=== PATIENT | male | born 1975 | race Caucasian/White ===

== ENCOUNTER 2017-02-15 09:03 | Emergency (ER) | payer MEDICAID, SELFPAY | END 2017-02-15 12:23 | disposition home or self-care (01) | PROVIDERS: Emergency Provider Emergency Medicine; Family Provider Internal Medicine Adolescent Medicine; Visit Provider Emergency Medicine | DX: R10.9 Unspecified abdominal pain (principal); E11.9 Type 2 diabetes mellitus without complications; Z86.73 Personal history of transient ischemic attack (TIA), and cerebral infarction without residual deficits; Z79.4 Long term (current) use of insulin; Z79.899 Other long term (current) drug therapy | CPT/HCPCS: 74177; 80053; 82150; 83690; 85025; 96374; 99284; J2405; Q9967 ==

== ENCOUNTER 2017-06-01 17:16 | Emergency (ER) | payer MEDICAID, SELFPAY ==
[2017-06-01 17:38] VITALS: BP 121/91; PULSE 99; RESP 18; TEMP 37.4; O2SAT 96; BMI 35.9
--- NOTE | 2017-06-01 17:45 | PC.NURSE ---
ACCUCHECK [id number]
--- NOTE | 2017-06-01 17:49 | HMH.EDUTC ---
[facility] [place] Disposition Clinical Impression: Hyperglycemia Disposition: Home, Self-Care Condition on Discharge: Good Instructions: DI for Hyperglycemia -- Adult Additional Instructions: F/U with endocrinology. Call tomorrow for appt. They will likely adjust insulin. Drink plenty of fluids tonight and eat dinner with protein and complex carbs. Do not continue to fast. Referrals: Dharmesh Felder MD [Primary Care Provider] - Forms: Work/School Release Time of Disposition: 17:53 Medical Decision Making - Medical Records Medical records reviewed: Yes: I reviewed the patient's medical records. - [place] Inquiry Pt receiving controlled substance: No Vital Signs: 06/01/17 17:38 Temperature 99.3 F Temperature Source Temporal Artery Scan Pulse Rate [Right Brachial] 99 H Respiratory Rate 18 Blood Pressure [Right Arm] 121/91 Blood Pressure Mean [Right Arm] 101 Blood Pressure Source [Right Arm] Automatic Cuff Blood Pressure Position [Right Arm] Sitting 02 Sat by Pulse Oximetry 96 Oxygen Delivery Method Room Air - Lab Data Lab results reviewed: Yes: I reviewed the patient's lab results. [facility] [place] HPI - General Stated complaint: blood sugar high Time Seen by Provider: 06/01/17 17:30 Source of Information: Patient, Spouse Limitations: No Limitations Description of Symptoms (Recalled from Triage Doc. by RN): C/O ELEVATED BLOOD SUGAR AND DIABETIC NERVE PAIN. C/O CONFUSION EARLIER TODAY THAT SEEMS TO HAVE RESOLVED HEENT Symptoms (Recalled from RN notes): No Resp Symptoms (Recalled from RN notes): No Skin Symptoms (Recalled from RN notes): No MS Symptoms (Recalled from RN notes): Yes Functional Status (Recalled from RN notes): N/A - History of Present Illness Provider Complaint: Patient presents with hyperglycemia. Has history IDDM. Has had trouble regulating blood sugars. 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 Sugar this am was 417 after eating ham and eggs. Hasn't eaten anything since. Feels a little lightheaded, nauseous, shaky. His feet are burning and on fire. His urine is dark in color and it coker when he urinates. - Related Data Home Medications Medication Instructions Recorded Confirmed ergocalciferol (vitamin D2) 50,000 50,000 units PO NEEDED PRN 28 05/06/17 unit capsule Days #8 insulin human U-100 NPH-regulr 20 units SUB-Q BID 30 Days #10 05/06/17 70-30 mix 100 unit/mL subcutaneous susp magnesium oxide 400 mg tablet 400 mg PO BID 30 Days #60 05/06/17 metformin 500 mg tablet 500 mg pe PO BID 90 Days #180 05/06/17 06/01/17 Carvedilol [Carvedilol 3.125mg Tab] 3.125 mg PO BID 06/01/17 06/01/17 Cyclobenzaprine HCl [Flexeril 10mg 10 mg PO BID PRN 06/01/17 06/01/17 tablet] Fish Oil/Dha/Epa [Fish Oil 1,200 1 each PO DAILY 06/01/17 06/01/17 mg Fish Oil] Insulin Degludec [Tresiba 56 units SQ DAILY 06/01/17 06/01/17 Flextouch U-200] Lisinopril [Lisinopril 2.5mg Tab] 2.5 mg PO DAILY 06/01/17 06/01/17 Meloxicam 15 mg PO DAILY 06/01/17 06/01/17 Allergies Allergy/AdvReac Type Severity Reaction Status Date / Time coconut Allergy Severe S-SWELLS-OR Unverified 05/06/17 10:19 [From COCONUT (FOOD/DRUG)] AL/THROAT From COCONUT (FOOD/DRUG) Allergy Severe S-SWELLS-OR Uncoded 05/06/17 10:19 AL/THROAT - Worker's Comp Is this a Worker's Comp case?: No [facility]H History Medical History: Reports:: Anxiety, Depression, Diabetes Mellitus Type 2 Other Medical History: Reports: Other Comment: ADRIENNE Comment: Gallbladder - Social History Smoking Status: Never smoker Alcohol Intake: never Substance Use Type: denies use Occupational Status: unemployed - Psychiatric History Expresses thoughts of harming self/others: None Suicide Plan Description: No Plan Pschychiatric History:: Reports:: Anxiety, Depression Family Hx:: Stroke, Hypertension, Diabetes Comment: COPD ROS Obtained: Yes All systems reviewed & no additional complaints - Co
--- NOTE | 2017-06-01 17:52 | ED_ITS ---
[facility] [place]: Hyperglycemia Disposition: Home, Self-Care Condition on Discharge: Good Instructions: DI for Hyperglycemia -- Adult Additional Instructions: F/U with endocrinology. Call tomorrow for appt. They will likely adjust insulin. Drink plenty of fluids tonight and eat dinner with protein and complex carbs. Do not continue to fast. Referrals: Dharmesh Felder MD [Primary Care Provider] - Forms: Work/School Release Time of Disposition: 17:53 Medical Decision Making - Medical Records Medical records reviewed: Yes: I reviewed the patient's medical records. - [place] Inquiry Pt receiving controlled substance: No Vital Signs: 06/01/17 17:38 Temperature 99.3 F Temperature Source Temporal Artery Scan Pulse Rate [Right Brachial] 99 H Respiratory Rate 18 Blood Pressure [Right Arm] 121/91 Blood Pressure Mean [Right Arm] 101 Blood Pressure Source [Right Arm] Automatic Cuff Blood Pressure Position [Right Arm] Sitting 02 Sat by Pulse Oximetry 96 Oxygen Delivery Method Room Air - Lab Data Lab results reviewed: Yes: I reviewed the patient's lab results. [facility] [place] - General Stated complaint: blood sugar high Time Seen by Provider: 06/01/17 17:30 Source of Information: Patient, Spouse Limitations: No Limitations Description of Symptoms (Recalled from Triage Doc. by RN): C/O ELEVATED BLOOD SUGAR AND DIABETIC NERVE PAIN. C/O CONFUSION EARLIER TODAY THAT SEEMS TO HAVE RESOLVED HEENT Symptoms (Recalled from RN notes): No Resp Symptoms (Recalled from RN notes): No Skin Symptoms (Recalled from RN notes): No MS Symptoms (Recalled from RN notes): Yes Functional Status (Recalled from RN notes): N/A - History of Present Illness Provider Complaint: Patient presents with hyperglycemia. Has history IDDM. Has had trouble regulating blood sugars. 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 Sugar this am was 417 after eating ham and eggs. Hasn't eaten anything since. Feels a little lightheaded, nauseous, shaky. His feet are burning and on fire. His urine is dark in color and it coker when he urinates. - Related Data Home Medications Medication Instructions Recorded Confirmed ergocalciferol (vitamin D2) 50,000 50,000 units PO NEEDED PRN 28 05/06/17 unit capsule Days #8 insulin human U-100 NPH-regulr 20 units SUB-Q BID 30 Days #10 05/06/17 70-30 mix 100 unit/mL subcutaneous susp magnesium oxide 400 mg tablet 400 mg PO BID 30 Days #60 05/06/17 metformin 500 mg tablet 500 mg pe PO BID 90 Days #180 05/06/17 06/01/17 Carvedilol [Carvedilol 3.125mg Tab] 3.125 mg PO BID 06/01/17 06/01/17 Cyclobenzaprine HCl [Flexeril 10mg 10 mg PO BID PRN 06/01/17 06/01/17 tablet] Fish Oil/Dha/Epa [Fish Oil 1,200 1 each PO DAILY 06/01/17 06/01/17 mg Fish Oil] Insulin Degludec [Tresiba 56 units SQ DAILY 06/01/17 06/01/17 Flextouch U-200] Lisinopril [Lisinopril 2.5mg Tab] 2.5 mg PO DAILY 06/01/17 06/01/17 Meloxicam 15 mg PO DAILY 06/01/17 06/01/17 Allergies Allergy/AdvReac Type Severity Reaction Status Date / Time coconut Allergy Severe S-SWELLS-OR Unverified 05/06/17 10:19 [From COCONUT (FOOD/DRUG)] AL/THROAT From COCONUT (FOOD/DRUG) Allergy Severe S-SWELLS-OR Uncoded 05/06/17 10:19 AL/THROAT
[2017-06-01 17:58] VITALS: BP 121/91; PULSE 99; RESP 18; TEMP 37.4; O2SAT 96
[2017-06-02 07:29] LABS: POC Glucose,Bedside 362 mg/dL (70-110)
== END 2017-06-01 17:59 | disposition home or self-care (01) ==
PROVIDERS: Emergency Provider Physician Assistant; Family Provider Internal Medicine Adolescent Medicine; PCP Internal Medicine Adolescent Medicine
DX: E11.65 Type 2 diabetes mellitus with hyperglycemia (principal); Z79.4 Long term (current) use of insulin; I10 Essential (primary) hypertension
CPT/HCPCS: 82962; 99201

== ENCOUNTER → 2017-07-30 09:31 | Outpatient (CLI) | payer MEDICAID, SELFPAY ==
--- NOTE | 2017-07-30 09:36 | MR_ITS ---
MR cervical spine wo con, MR 3-d myelogram/MRCP HISTORY: Lt sided neck pain. Bilateral arm pain but LT arm is worse with pain, numbness, and tingling. Headache. ITS.REASON: C6 RADICULOPATHY, CERVICAL NEURALGIA ORDERING PHYSICIAN: Dharmesh Felder MD PATIENT AGE: 42 years Comparison: CT 07-19-17, MRI 12-07-12 TECHNIQUE: Standard multiplanar multiecho sequences are performed without contrast. 3-D MIP and myelographic images are also rendered and reviewed FINDINGS: There is normal alignment. There is straightening of the cervical lordosis. This may be due to patient positioning or muscle spasm. The craniocervical junction has an unremarkable appearance. C2-C3: Unremarkable. C3-C4: Minimal foraminal narrowing on the right from facet hypertrophic change. C4-C5: Degenerative disc disease with right paracentral disc protrusion/disc osteophyte complex with compression upon the anterior and right aspect of the cord causing flattening of the cord at this area with right lateral recess narrowing. This had a similar appearance on 12/07/2012 MRI. C5-C6: Mild degenerative disc disease. C6-C7: There is a small left paracentral disc osteophyte complex with an associated disc protrusion/herniation in the left paracentral and foraminal region which is more prominent on today's exam than when compared to 12/17/2012. This is causing left lateral recess narrowing and foraminal narrowing with mild indentation upon the left aspect of the cord anteriorly. C7-T1: Unremarkable. IMPRESSION: 1. Degenerative disc disease C4-C5 with right paracentral disc protrusion/disc osteophyte complex with compression upon the anterior and right aspect of the cord causing flattening of the cord at this area with right lateral recess narrowing not significant changed 2. Small left paracentral disc osteophyte complex at C6-C7 with an associated disc protrusion/herniation in the left paracentral and foraminal region which is more prominent on today's exam than when compared to 12/17/2012. This is causing left lateral recess narrowing and foraminal narrowing with mild indentation upon the left aspect of the cord anteriorly.
== END ==
PROVIDERS: Family Provider Internal Medicine Adolescent Medicine; PCP Internal Medicine Adolescent Medicine; Visit Provider Internal Medicine Adolescent Medicine
DX: M54.12 Radiculopathy, cervical region (principal)
CPT/HCPCS: 72141; 76376

== ENCOUNTER → 2017-11-25 08:17 | Outpatient (CLI) | payer MEDICAID, SELFPAY | PROVIDERS: PCP Internal Medicine Adolescent Medicine; Visit Provider Internal Medicine Endocrinology, Diabetes & Metabolism | DX: R55 Syncope and collapse (principal); E11.65 Type 2 diabetes mellitus with hyperglycemia ==

== ENCOUNTER → 2017-11-26 07:49 | Outpatient (CLI) | payer MEDICAID, SELFPAY ==
--- NOTE | 2017-11-26 07:54 | MR_ITS ---
MR cervical spine wo/w con, MR 3-d myelogram/MRCP HISTORY: Cervical RADICULOPATHY, left arm and shoulder pain and numbness and tingling with headache, recent surgery ITS.REASON: CERVICAL RADICULOPATHY, LUMBAR DISC HERNIATION ORDERING PHYSICIAN: RIKI Taylor PATIENT AGE: 42 years Comparison: 07/30/2017 TECHNIQUE: Standard multiplanar multiecho sequences are performed without and with gadolinium enhancement. 3-D MIP and myelographic images are also rendered and reviewed FINDINGS: There is normal alignment. There is straightening of the cervical lordosis which could be due to patient positioning or muscle spasm. There has been interval anterior cervical disc fusion at C6-C7. C2-C3 and C3-C4 have an unremarkable appearance. C4-C5: Degenerative disc disease with small right paracentral disc protrusion/small disc osteophyte complex abutting the anterior and right aspect of the spinal cord with minimal flattening of the cord anteriorly on the right similar to the previous exam. There is right lateral recess narrowing and narrowing of the canal at this level. C5-C6: Minimal left paracentral disc protrusion causing mild foraminal narrowing and left lateral recess narrowing C6-C7: Status post anterior cervical disc fusion with degenerative disc disease. The previously noted left paracentral and foraminal disc osteophyte complex is smaller. There does remain some residual left paracentral and foraminal disc protrusion with foraminal narrowing. There is some minimal contour deformity upon the cord anteriorly on the left. There is decreased T1 and increased T2 signal along the posterior aspect of the disc space at C6-C7 with some mild enhancement of the disc on the left. C7-T1: Unremarkable IMPRESSION: 1. Status post anterior cervical disc fusion at C6-C7 with degenerative disc disease. The previously noted left paracentral and foraminal disc osteophyte complex is smaller. There does remain some residual left paracentral and foraminal disc protrusion with foraminal narrowing. There is some minimal contour deformity upon the cord anteriorly on the left. There is decreased T1 and increased T2 signal along the posterior aspect of the disc space at C6-C7 with some mild enhancement of the disc on the left. This could be related to postsurgical changes with some residual inflammation and some mild epidural fibrosis on the left. One cannot exclude the possibility of spondylodiscitis based on the images. Correlation with clinical findings and therefore needed. 2. C4-C5: Degenerative disc disease with small right paracentral disc protrusion/small disc osteophyte complex abutting the anterior and right aspect of the spinal cord with minimal flattening of the cord anteriorly on the right similar to the previous exam. There is right lateral recess narrowing and narrowing of the canal at this level. 3. C5-C6: Minimal left paracentral disc protrusion causing mild foraminal narrowing and left lateral recess narrowing
--- NOTE | 2017-11-26 07:54 | MR_ITS ---
MR lumbar spine wo con HISTORY: Low back pain with left leg pain and numbness and tingling ITS.REASON: CERVICAL RADICULOPATHY, LUMBAR DISC HERNIATION ORDERING PHYSICIAN: RIKI Taylor PATIENT AGE: 42 years Comparison: 03/27/2015 TECHNIQUE: Standard multiplanar multiecho sequences are performed without contrast. 3-D MIP and myelographic images are also rendered and reviewed FINDINGS: There is normal alignment. The spinal cord ends at the L1 level. T12-L1: Mild endplate irregularity with minimal bulging disc anteriorly. L1-L2: Mild endplate irregularity. L2-L3: Mild endplate irregularity. L3-L4: Unremarkable. L4-5: Mild right lateral and foraminal disc protrusion with mild right foraminal narrowing L5-S1: Left paracentral and foraminal disc protrusion impinging upon the left S1 nerve root with associated facet hypertrophic change with left-sided foraminal narrowing left lateral recess narrowing. Status post laminotomy on the right. The left paracentral and foraminal disc protrusion may be very slightly larger compared to the previous exam. IMPRESSION: 1. L4-5: Mild right lateral and foraminal disc protrusion with mild right foraminal narrowing 2. L5-S1: Left paracentral and foraminal disc protrusion impinging upon the left S1 nerve root with associated facet hypertrophic change with left-sided foraminal narrowing left lateral recess narrowing. Status post laminotomy on the right. The left paracentral and foraminal disc protrusion may be very slightly larger compared to the previous exam
--- NOTE | 2017-11-26 12:41 | HMH.ITSHM ---
LEXAPRO CYCLOBENZAPRINE HYDROCHLORIDE LYRICA BD INSULIN SYRINGE MAGNESIUM OXIDE CARVEDILOL LISINOPRIL METFORMIN ERGOCALCIFEROL FISH OIL TRESIBA HUMULIN NASEEM METHOCARBAMOL ATORVASTATIN JANUVIA
== END ==
PROVIDERS: Family Provider Internal Medicine Adolescent Medicine; PCP Internal Medicine Adolescent Medicine; Visit Provider Physician Assistant
DX: M51.16 Intervertebral disc disorders with radiculopathy, lumbar region (principal); M54.12 Radiculopathy, cervical region; M47.812 Spondylosis without myelopathy or radiculopathy, cervical region
CPT/HCPCS: 72148; 72156; 76376; A9576

== ENCOUNTER → 2017-12-16 08:43 | Outpatient (CLI) | payer MEDICAID, SELFPAY ==
[2017-12-16 09:13] LABS: Microscopic, Urine URINE MICROSCOPIC (MICROSCOPIC)
[2017-12-16 09:37] LABS: Appearance,Urine CLEAR (Clear); Bilirubin,Urine Negative (Negative); Blood, Urine Negative (Negative); Color,Urine YELLOW (Yellow); Glucose,Urine (UA) 3+ (Negative); Ketones,Urine Negative (Negative); Leukocyte Esterase,Urine Negative (Negative); Nitrate,Urine Negative (Negative); PH,Urine 5.5 (5.0-8.5); Protein,Urine Negative (Negative); Specific Gravity, Urine >= 1.030 (1.005-1.030); Urobilinogen,Urine 0.2 EU/dl (0.2)
[2017-12-16 09:56] LABS: Basophils % 0.3 % (0.1-2.0); Eosinophils # 0.2 K/mm3 (0.0-0.4); Eosinophils % 2.8 % (0.1-12.0); Hematocrit 39.5 % (42.0-52.0); Hemoglobin 14.4 g/dL (14.1-18.0); Lymphocytes # 2.7 K/mm3 (0.7-4.5); Lymphocytes % 48.6 K/mm3 (10-50); Mean Corpuscular HGB Conc 36.3 g/dL (31.8-35.4); Mean Corpuscular Hemoglobin 29.2 pg (27.0-31.2); Mean Corpuscular Volume 80.4 fl (80-94); Mean Platelet Volume 6.7 fl (7.4-10.4); Monocytes # 0.2 K/mm3 (0.1-1.0); Monocytes % 4.1 % (1.7-9.3); Neutrophils # 2.5 K/mm3 (1.8-7.8); Neutrophils % 44.2 % (37.0-80.0); Platelet Count 190 K/mm3 (142-424); Red Blood Count 4.91 M/mm3 (4.60-6.20); Red Cell Distribution Width 13.6 % (11.5-17.5); White Blood Count 5.6 K/mm3 (4.8-10.8)
[2017-12-16 10:03] LABS: Activated Partial Thrombo Time 27.7 seconds (23.6-34.0); INR 1.02 (0.9-1.1)
[2017-12-16 10:04] LABS: Prothrombin Time 10.5 seconds (9.4-11.8)
[2017-12-16 10:19] LABS: Bacteria,Urine Trace /lpf; Mucus,Urine 2+ /lpf
[2017-12-16 10:36] LABS: Anion Gap 16.1 mEq/L (5-15); Blood Urea Nitrogen 13 mg/dL (7-18); Calcium 8.1 mg/dL (8.5-10.1); Carbon Dioxide 24 mmol/L (21.0-32.0); Chloride 100 mmol/L (98-107); Creatinine,Serum 0.65 mg/dL (0.70-1.30); Estimated Glomerular Filt Rate 134 ml/min (>60); GFR (African American) 162 ML/MIN (>60); Potassium 4.1 mmoL/L (3.5-5.1); Sodium 136 mmol/L (136-145)
[2017-12-16 10:42] LABS: Hemoglobin A1C 8.9 % (0.0-7.0)
[2017-12-16 12:09] LABS: Glucose 260 mg/dL (74-106)
== END ==
PROVIDERS: PCP Internal Medicine Adolescent Medicine; Visit Provider Neurological Surgery
DX: M51.16 Intervertebral disc disorders with radiculopathy, lumbar region (principal)
CPT/HCPCS: 36415; 80048; 81001; 83036; 85025; 85610; 85730; 93005

== ENCOUNTER 2018-08-26 10:00 | Outpatient (RCR) | payer MEDICAID, SELFPAY | END 2018-08-26 10:15 | disposition home or self-care (01) | LOC: PT 10:00 | PROVIDERS: Visit Provider Orthopaedic Surgery | DX: M25.512 Pain in left shoulder (principal) | CPT/HCPCS: 97014; 97016; 97110; 97140; 97163; G0283 ==

== ENCOUNTER → 2019-06-01 08:31 | Outpatient (CLI) | payer BC, SELFPAY ==
[2019-06-01 09:36] LABS: Basophils % 0.3 % (0.1-2.0); Eosinophils # 0.2 K/mm3 (0.0-0.4); Hematocrit 42.6 % (42.0-52.0); Hemoglobin 14.5 g/dL (14.1-18.0); Lymphocytes # 2.6 K/mm3 (0.7-4.5); Lymphocytes % 40.9 % (10-50); Mean Corpuscular Hemoglobin 27.6 pg (27.0-31.2); Mean Corpuscular Volume 81.3 fl (80-94); Mean Platelet Volume 7.1 fl (7.4-10.4); Monocytes # 0.3 K/mm3 (0.1-1.0); Monocytes % 4.1 % (1.7-9.3); Neutrophils # 3.3 K/mm3 (1.8-7.8); Neutrophils % 51.7 % (37.0-80.0); Platelet Count 184 K/mm3 (142-424); Red Blood Count 5.24 M/mm3 (4.60-6.20); Red Cell Distribution Width 13.5 % (11.5-17.5); White Blood Count 6.4 K/mm3 (4.8-10.8)
[2019-06-01 13:00] LABS: Chloride 101 mmol/L (98-107); Potassium 4.5 mmoL/L (3.5-5.1); Sodium 137 mmol/L (136-145)
[2019-06-01 13:02] LABS: Alanine Aminotransferase 38 U/L (12-78); Aspartate Amino Transferase 27 U/L (17-59); Blood Urea Nitrogen 15 mg/dl (9-20); Estimated Glomerular Filt Rate 123 ml/min (>60); GFR (African American) 148 ML/MIN (>60)
[2019-06-01 13:03] LABS: Albumin Level 4.5 g/dl (3.5-5.0); Albumin/Globulin Ratio 1.9 (1.1-1.8); Alkaline Phosphatase 66 U/L (38-126); Anion Gap 13.5 mEq/L (5-15); Bilirubin,Total 0.9 mg/dl (0.2-1.3); Calcium 9.2 mg/dl (8.4-10.2); Carbon Dioxide 27 mmol/L (22.0-30.0); Chol/HDL Ratio 6.1 (1-3.5); Cholesterol 164 mg/dl (140-200); Globulin 2.4 g/dL (1.3-3.2); Glucose 158 mg/dl (74-100); HDL Cholesterol 27 mg/dl (40-60); Total Protein,Serum 6.9 g/dl (6.3-8.2)
[2019-06-01 13:14] LABS: Direct LDL Cholesterol 63.51 mg/dL (100-129)
[2019-06-01 13:19] LABS: Triglycerides 403 mg/dl (30-150)
[2019-06-01 14:42] LABS: Hemoglobin A1C 7.2 % (4.0-6.0)
== END ==
PROVIDERS: Visit Provider Internal Medicine Adolescent Medicine
DX: I25.10 Atherosclerotic heart disease of native coronary artery without angina pectoris (principal); E11.69 Type 2 diabetes mellitus with other specified complication
CPT/HCPCS: 36415; 80053; 80061; 83036; 85025

== ENCOUNTER → 2019-11-29 08:46 | Outpatient (CLI) | payer MEDICARE, SELFPAY ==
--- NOTE | 2019-11-29 | MR_ITS ---
PROCEDURE: MR CERVICAL SPINE WO/W CON CLINICAL INDICATION: NECK PAIN HX DDD AND RHEUMATOID ARTHRITIS. MULTIPLE BACK SURGERIES. BACK PAIN AND WEAKNESS UP UPPER AND LOWER EXTREMITIES. COMPARISON: MR SPCERVWW MR cervical spine wo/w con from 11/26/2017 TECHNIQUE: Standard multiplanar multiecho sequences are performed without contrast. 3-D MIP and myelographic images are also rendered and reviewed FINDINGS: Motion artifact does somewhat obscure fine detail especially on the axial images. There is slight reversal of the cervical lordosis. The cranial cervical junction has an unremarkable appearance. C2-C3: Unremarkable. C3-C4: Unremarkable. C4-C5: There is a small right paracentral disc osteophyte complex causing mild impingement upon the anterior right aspect of the cord with canal stenosis at this level as well as right lateral recess narrowing. This finding has become more prominent compared to the previous exam. The canal measures approximately 7 mm. C5-C6: Degenerative disc disease. There is a small left paracentral disc protrusion abutting the anterior left aspect of the cord with left lateral recess and foraminal narrowing. This has also become more prominent compared to the previous study. There is canal stenosis at this level at 10 mm. C6-C7: Artifact from prior anterior cervical disc fusion with some minimal ridging of the endplates on the left with mild bilateral foraminal narrowing. Mild kyphosis at this level C7-T1: Unremarkable. IMPRESSION: 1. C4-C5: There is a small right paracentral disc osteophyte complex causing mild impingement upon the anterior right aspect of the cord with canal stenosis at this level as well as right lateral recess narrowing. This finding has become more prominent compared to the previous exam. The canal measures approximately 7 mm. 2. C5-C6: Degenerative disc disease. There is a small left paracentral disc protrusion abutting the anterior left aspect of the cord with left lateral recess and foraminal narrowing. This has also become more prominent compared to the previous study. There is canal stenosis at this level at 10 mm. 3. C6-C7: Artifact from prior anterior cervical disc fusion with some minimal ridging of the endplates on the left with mild bilateral foraminal narrowing. Mild kyphosis at this level Dictated by: Jay West MD 11/30/2019 09:40 Jay West MD in [place] 11/30/2019 09:40
--- NOTE | 2019-11-29 | MR_ITS ---
PROCEDURE: MR LUMBAR SPINE WO/W CON CLINICAL INDICATION: LBP HX DDD AND RHEUMATOID ARTHRITIS. MULTIPLE BACK SURGERIES. BACK PAIN AND WEAKNESS UP UPPER AND LOWER EXTREMITIES. COMPARISON: MR SPLUMBWO MR lumbar spine wo con from 11/26/2017 TECHNIQUE: Standard multiplanar multiecho sequences are performed without contrast. 3-D MIP and myelographic images are also rendered and reviewed FINDINGS: There is normal alignment. There is slight reversal of the lumbar lordosis. The spinal cord ends at the L1 level. T12-L1 L1-L2 and L2-L3 demonstrate some mild irregularity of the endplates. No significant bulge or disc herniation evident. L3-L4: Unremarkable. L4-5: Mild facet hypertrophic changes L5-S1: Prior posterior fusion with laminectomy with inter pedicular screws at L5 and S1. Prominent artifact noted from the hardware. There are type 1 endplate changes at L5-S1. There is a small broad-based area of isointense signal intensity in the left paracentral region of the disc space. This does show some mild enhancement centrally and some enhancement along the left exiting L5 nerve root suggesting some mild epidural fibrosis. There may however be some remaining disc protrusion/disc osteophyte complex in the left foraminal region. Overall, the left paracentral and foraminal disc protrusion is slightly decreased in size compared to the previous exam No extruded herniated disc or canal stenosis. IMPRESSION: 1. Mild multilevel lumbar spondylosis as detailed above. 2. Prior posterior fusion at L5-S1 with laminectomy with inter pedicular screws at L5 and S1. Prominent artifact noted from the hardware. There are type 1 endplate changes at L5-S1. There is a small broad-based area of isointense signal intensity in the left paracentral region of the disc space. This does show some mild enhancement centrally and some enhancement along the left exiting L5 nerve root suggesting some mild epidural fibrosis. There does appear to be a persistent small left lateral paracentral and foraminal disc osteophyte complex causing foraminal narrowing on the left. Overall, the left paracentral and foraminal disc protrusion is slightly decreased in size compared to the previous exam Dictated by: Jay West MD 11/30/2019 09:28 Jay West MD in [place] 11/30/2019 09:28
== END ==
PROVIDERS: PCP Internal Medicine Adolescent Medicine; Visit Provider Internal Medicine Adolescent Medicine
DX: M54.12 Radiculopathy, cervical region (principal); M54.16 Radiculopathy, lumbar region
CPT/HCPCS: 72156; 72158; 76376; A9576

== ENCOUNTER → 2020-02-25 10:37 | Outpatient (CLI) | payer MEDICARE, SELFPAY | PROVIDERS: PCP Internal Medicine Adolescent Medicine; Visit Provider Anesthesiology Pain Medicine | DX: Z01.812 Encounter for preprocedural laboratory examination (principal); Z03.818 Encounter for observation for suspected exposure to other biological agents ruled out | CPT/HCPCS: U0003 ==

== ENCOUNTER → 2020-11-18 15:38 | Outpatient (CLI) | payer MEDICARE, SELFPAY ==
[2020-11-18 16:15] LABS: Basophils % 0.6 % (0.1-2.0); Eosinophils # 0.1 K/mm3 (0.0-0.4); Eosinophils % 2.3 % (0.1-12.0); Hematocrit 45.1 % (42.0-52.0); Hemoglobin 15.8 g/dL (14.1-18.0); Lymphocytes # 3.1 K/mm3 (0.7-4.5); Mean Corpuscular Hemoglobin 28.7 pg (27.0-31.2); Mean Corpuscular Volume 82.2 fl (80-94); Mean Platelet Volume 7.9 fl (7.4-10.4); Monocytes # 0.3 K/mm3 (0.1-1.0); Monocytes % 4.9 % (1.7-9.3); Neutrophils # 2.4 K/mm3 (1.8-7.8); Neutrophils % 40.1 % (37.0-80.0); Platelet Count 230 K/mm3 (142-424); Red Blood Count 5.49 M/mm3 (4.60-6.20); White Blood Count 5.9 K/mm3 (4.8-10.8)
[2020-11-18 16:17] LABS: MANUAL DIFFERENTIAL MANUAL DIFFERENTIAL (MANUAL DIFF)
[2020-11-18 16:38] LABS: Hemoglobin A1C 10.9 % (4.0-6.0)
[2020-11-18 16:56] LABS: Alanine Aminotransferase 60 U/L (12-78); Albumin Level 4.6 g/dl (3.5-5.0); Albumin/Globulin Ratio 1.5 (1.1-1.8); Alkaline Phosphatase 103 U/L (38-126); Anion Gap 18.7 mEq/L (5-15); Aspartate Amino Transferase 46 U/L (17-59); Bilirubin,Total 0.8 mg/dl (0.2-1.3); Blood Urea Nitrogen 20 mg/dl (9-20); Calcium 9.9 mg/dl (8.4-10.2); Carbon Dioxide 24 mmol/L (22.0-30.0); Chloride 99 mmol/L (98-107); Chol/HDL Ratio 8.7 (1-3.5); Cholesterol 191 mg/dl (140-200); Estimated Glomerular Filt Rate 121 ml/min (>60); GFR (African American) 147 ML/MIN (>60); Globulin 3.1 g/dL (1.3-3.2); Glucose 309 mg/dl (74-100); HDL Cholesterol 22 mg/dl (40-60); Potassium 4.7 mmoL/L (3.5-5.1); Sodium 137 mmol/L (136-145); Total Protein,Serum 7.7 g/dl (6.3-8.2)
[2020-11-18 17:07] LABS: Triglycerides 1188 mg/dl (30-150)
[2020-11-18 17:26] LABS: Thyroid Stimulating Hormone 2.27 uIU/mL (0.465-4.68)
[2020-11-18 17:44] LABS: Vitamin B12 506 pg/mL (239-931)
[2020-11-18 18:00] LABS: Eosinophils % 2 % (0-3); Lymphocytes % 62 % (10-50); Monocytes % 8 % (2-9); Neutrophils % 28 % (42-76); Platelet Estimate Normal; RBC Morphology Normal; Total Cells Counted 100
== END ==
PROVIDERS: Visit Provider Internal Medicine Adolescent Medicine
DX: I25.10 Atherosclerotic heart disease of native coronary artery without angina pectoris (principal); E11.9 Type 2 diabetes mellitus without complications; M54.12 Radiculopathy, cervical region; Z79.84 Long term (current) use of oral hypoglycemic drugs
CPT/HCPCS: 36415; 80053; 80061; 82607; 83036; 84443; 85007; 85025

== ENCOUNTER → 2020-11-26 12:09 | Outpatient (CLI) | payer MEDICARE, SELFPAY | PROVIDERS: PCP Internal Medicine Adolescent Medicine; Visit Provider Nurse Practitioner | DX: Z20.822 Contact with and (suspected) exposure to COVID-19 (principal); U07.1 COVID-19 | CPT/HCPCS: C9803; U0003; U0005 ==

== ENCOUNTER 2020-12-07 09:55 | Emergency (ER) | payer MEDICARE, SELFPAY ==
[2020-12-07 10:14] VITALS: BP 125/78; PULSE 92; RESP 20; TEMP 36.6; O2SAT 95; BMI 33.6
[2020-12-07 10:27] VITALS: BP 125/78; PULSE 92; RESP 20; TEMP 36.6
--- NOTE | 2020-12-07 10:38 | HMH.EDUTC ---
[facility] [place] Impression: Asymptomatic COVID-19 virus infection Disposition: Home, Self-Care Condition on Discharge: Good Instructions: Preventing the Spread of Coronavirus Discharge Instructions Additional Instructions: If you've had no symptoms and it has been 10 days since you tested positive, you should consider yourself off quarantine after today, no matter what your test shows today Follow up with your primary care provider. GO TO THE ER FOR ANY WORSENING SYMPTOMS OR CONCERNS. Referrals: Dharmesh Felder MD [Primary Care Provider] - Time of Disposition: 10:43 Medical Decision Making - Medical Records Medical records reviewed: No: I reviewed the patient's medical records. - [place] Inquiry Pt receiving controlled substance: No Vital Signs: 12/07/20 10:14 12/07/20 10:27 Temperature 98 F 98 F Temperature Source Oral Pulse Rate 92 H Pulse Rate [Left] 92 H Respiratory Rate 20 20 Blood Pressure 125/78 Blood Pressure [Right Arm] 125/78 Blood Pressure Mean [Right Arm] 93 02 Sat by Pulse Oximetry 95 [facility] [place] - General Stated complaint: covid test Time Seen by Provider: 12/07/20 10:38 Mode of Arrival: Ambulatory Source of Information: Patient Limitations: No Limitations Description of Symptoms (Recalled from Triage Doc. by RN): PT HAS JUST FINISHED UP QUARENTINE FOR A POSITIVE COVID TEST. PT WANTS RETESTED. HEENT Symptoms (Recalled from RN notes): No Resp Symptoms (Recalled from RN notes): No Skin Symptoms (Recalled from RN notes): No MS Symptoms (Recalled from RN notes): No Functional Status (Recalled from RN notes): NA - History of Present Illness Provider Complaint: He tested positive for covid-19 10 days ago. He never had any symptoms. Today is his last day of quarentine and he would like to be retested. He has been fully vaccinated against covid-19. - Related Data Home Medications Medication Instructions Recorded Confirmed carvediloL [Carvedilol 3.125mg Tab] 3.125 mg PO BID 06/01/17 10/11/19 lisinopriL [Lisinopril 2.5mg Tab] 2.5 mg PO DAILY 06/01/17 10/11/19 atorvastatin 40 mg tablet 40 mg PO DAILY 05/03/19 10/11/19 escitalopram oxalate 10 mg tablet 10 mg PO DAILY tab 05/03/19 10/11/19 metformin 1,000 mg tablet 1,000 mg PO DAILY tab 05/03/19 10/11/19 sitagliptin 100 mg tablet 100 mg PO DAILY tab 05/03/19 10/11/19 Allergies Allergy/AdvReac Type Severity Reaction Status Date / Time coconut Allergy Severe S-SWELLS-OR Verified 10/11/19 09:09 [From COCONUT (FOOD/DRUG)] AL/THROAT - Worker's Comp Is this a Worker's Comp case?: No H History - Hepatitis A Screen Drug use history?: No High risk sexual behaviors?: No History of sexually transmitted infection?: No Currently employed?: No Childcare worker?: No Do you have indoor plumbing?: Yes Do you have electricity?: Yes Attestation statement:: This patient has been screened for Hepatitis A risk factors. I have reviewed the patient's past medical history: Yes Medical History: Reports:: Anxiety, Cancer, Depression, Diabetes Mellitus Type 1, Diabetes Mellitus Type 2, Gastroesophageal Reflux Disease(GERD), Hyperlipidemia, Hypertension, Migraine, Transient Ischemic Attacks (TIA) Denies:: MRSA Other Medical History: Reports: Arthritis, Fibromyalgia, Other Comment: ADRIENNE Laterality Cases: Right: Carpal Tunnel Release Other Surgeries: Yes: No Previous Surgery, Cholecystectomy Amputation: No Fractures: No Comment: Gallbladder - Social History Smoking Status: Never smoker Alcohol Intake: never Substance Use Type: denies use Occupational Status: disabled Housing: house Household Members: spouse, children - Psychiatric History Pschychiatric History:: Reports:: Anxiety, Depression Family Hx:: Stroke, Hypertension, Diabetes Comment: COPD ROS Obtained: Yes All systems reviewed & no additional complaints - Constitutional Constitutional: Reports system reviewed and no additional complaints, except a
== END 2020-12-07 11:00 | disposition home or self-care (01) ==
PROVIDERS: Emergency Provider Nurse Practitioner Family; PCP Internal Medicine Adolescent Medicine
DX: Z02.89 Encounter for other administrative examinations; Z86.16 Personal history of COVID-19
CPT/HCPCS: 99202; C9803; G0463; U0003; U0005

== ENCOUNTER → 2020-12-09 12:39 | Outpatient (CLI) | payer MEDICARE, SELFPAY ==
[2020-12-09 13:57] LABS: Alanine Aminotransferase 59 U/L (12-78); Albumin Level 4.7 g/dl (3.5-5.0); Albumin/Globulin Ratio 1.6 (1.1-1.8); Alkaline Phosphatase 93 U/L (38-126); Anion Gap 12.5 mEq/L (5-15); Aspartate Amino Transferase 39 U/L (17-59); Bilirubin,Total 0.9 mg/dl (0.2-1.3); Blood Urea Nitrogen 12 mg/dl (9-20); Calcium 9.7 mg/dl (8.4-10.2); Carbon Dioxide 26 mmol/L (22.0-30.0); Chloride 103 mmol/L (98-107); Estimated Glomerular Filt Rate 145 ml/min (>60); GFR (African American) 176 ML/MIN (>60); Glucose 257 mg/dl (74-100); Potassium 4.5 mmoL/L (3.5-5.1); Sodium 137 mmol/L (136-145); Total Protein,Serum 7.7 g/dl (6.3-8.2)
== END ==
PROVIDERS: Visit Provider Internal Medicine Adolescent Medicine
DX: E11.9 Type 2 diabetes mellitus without complications (principal); Z79.84 Long term (current) use of oral hypoglycemic drugs
CPT/HCPCS: 36415; 80053

== ENCOUNTER → 2021-12-31 15:43 | Outpatient (CLI) | payer MEDICARE, SELFPAY ==
--- NOTE | 2021-12-31 16:05 | XR_ITS ---
FINAL REPORT CLINICAL HISTORY: ARTHRALGIA OF MULTIPLE SITES FINDINGS: 2 views of the left hip and an AP pelvis were obtained. There is no acute fracture or dislocation. There are mild degenerative changes of both hips. There has been fusion of L5-S1. There are no soft tissue abnormalities. IMPRESSION: Mild degenerative change. Reviewed, Interpreted and Dictated by Raleigh Mccauley III, MD Transcribed by Juan Sawyer Authenticated and [facility]
--- NOTE | 2021-12-31 16:06 | XR_ITS ---
FINAL REPORT CLINICAL HISTORY: hip pain -- AP pelvis done under LEFT HIP FINDINGS: 2 views of the right hip were obtained. There is no acute fracture or dislocation. There are mild degenerative changes. There has been fusion of L5-S1. There are no soft tissue abnormalities. IMPRESSION: Mild degenerative change. Reviewed, Interpreted and Dictated by Raleigh Mccauley III, MD Transcribed by Juan Sawyer Authenticated and [facility]
== END ==
PROVIDERS: PCP Internal Medicine Adolescent Medicine; Visit Provider Nurse Practitioner Family
DX: M25.552 Pain in left hip (principal); M25.551 Pain in right hip; M25.50 Pain in unspecified joint; M79.2 Neuralgia and neuritis, unspecified
CPT/HCPCS: 73502

== ENCOUNTER → 2022-05-22 12:34 | Outpatient (CLI) | payer MEDICARE, SELFPAY ==
--- NOTE | 2022-05-22 12:39 | XR_ITS ---
FINAL REPORT CLINICAL HISTORY: THORACIC PAIN FINDINGS: THORACIC SPINE Three views demonstrate no acute fracture. There is mild anterior osteophyte formation in the midthoracic spine. There is no malalignment. Cervical fusion hardware is seen bridging C6-7. IMPRESSION: Mild degenerative changes. Reviewed, Interpreted and Dictated by Sergio Day MD Transcribed by Aniya Barfield Authenticated and . [facility] [place]
== END ==
LOC: RAD 12:35
PROVIDERS: PCP Internal Medicine Adolescent Medicine; Visit Provider Nurse Practitioner Family
DX: M54.6 Pain in thoracic spine (principal)
CPT/HCPCS: 72072

== ENCOUNTER → 2022-06-01 17:05 | Outpatient (CLI) | payer MEDICARE, SELFPAY | PROVIDERS: Visit Provider Nurse Practitioner Family | DX: B35.1 Tinea unguium (principal) | CPT/HCPCS: 87102; 87206; 87220 ==

== ENCOUNTER → 2022-08-26 09:56 | Outpatient (CLI) | payer MEDICARE, SELFPAY ==
[2022-08-26 10:49] LABS: Alanine Aminotransferase 58 U/L (12-78); Albumin Level 4.7 g/dl (3.5-5.0); Albumin/Globulin Ratio 1.9 (1.1-1.8); Alkaline Phosphatase 83 U/L (38-126); Anion Gap 16.4 mEq/L (5-15); Aspartate Amino Transferase 39 U/L (17-59); Blood Urea Nitrogen 14 mg/dl (9-20); Calcium 8.9 mg/dl (8.4-10.2); Carbon Dioxide 26 mmol/L (22.0-30.0); Chloride 101 mmol/L (98-107); Chol/HDL Ratio 5.6 (1-3.5); Cholesterol 140 mg/dl (140-200); Estimated Glomerular Filt Rate 144 ml/min (>60); GFR (African American) 174 ML/MIN (>60); Globulin 2.5 g/dL (1.3-3.2); Glucose 212 mg/dl (74-100); HDL Cholesterol 25 mg/dl (40-60); Potassium 4.4 mmoL/L (3.5-5.1); Sodium 139 mmol/L (136-145); Total Protein,Serum 7.2 g/dl (6.3-8.2)
[2022-08-26 10:54] LABS: Triglycerides 446 mg/dl (30-150)
[2022-08-26 11:00] LABS: Direct LDL Cholesterol 34.61 mg/dL (100-129)
[2022-08-26 11:44] LABS: Hemoglobin A1C 8.7 % (4.0-6.0)
== END ==
PROVIDERS: PCP Nurse Practitioner Family; Visit Provider Nurse Practitioner Family
DX: I25.10 Atherosclerotic heart disease of native coronary artery without angina pectoris (principal); E11.9 Type 2 diabetes mellitus without complications; Z79.84 Long term (current) use of oral hypoglycemic drugs
CPT/HCPCS: 36415; 80053; 80061; 83036

== ENCOUNTER 2023-03-27 12:31 | Outpatient (CLI) | payer MEDICARE, SELFPAY ==
[2023-03-27 12:48] LABS: Basophils # 0.1 K/mm3 (0-0.2); Eosinophils # 0.2 K/mm3 (0.0-0.4); Eosinophils % 2.7 % (0.1-12.0); Hematocrit 43.6 % (42.0-52.0); Hemoglobin 14.9 g/dL (14.1-18.0); Lymphocytes # 2.8 K/mm3 (0.7-4.5); Lymphocytes % 43.1 % (10-50); Mean Corpuscular HGB Conc 34.2 g/dL (31.8-35.4); Mean Corpuscular Hemoglobin 27.9 pg (27.0-31.2); Mean Corpuscular Volume 81.4 fl (80-94); Mean Platelet Volume 7.4 fl (7.4-10.4); Monocytes # 0.3 K/mm3 (0.1-1.0); Monocytes % 4.5 % (1.7-9.3); Neutrophils # 3.1 K/mm3 (1.8-7.8); Neutrophils % 48.7 % (37.0-80.0); Platelet Count 153 K/mm3 (142-424); Red Blood Count 5.35 M/mm3 (4.60-6.20); Red Cell Distribution Width 13.8 % (11.5-17.5); White Blood Count 6.4 K/mm3 (4.8-10.8)
[2023-03-27 13:08] LABS: Hemoglobin A1C 10.3 % (4.0-6.0)
[2023-03-27 14:16] LABS: Chloride 103 mmol/L (98-107); Potassium 4.2 mmoL/L (3.5-5.1); Sodium 135 mmol/L (136-145)
[2023-03-27 14:19] LABS: Alanine Aminotransferase 71 U/L (12-78); Albumin Level 4.3 g/dl (3.5-5.0); Albumin/Globulin Ratio 1.8 (1.1-1.8); Alkaline Phosphatase 75 U/L (38-126); Anion Gap 12.2 mEq/L (5-15); Aspartate Amino Transferase 44 U/L (17-59); Bilirubin,Total 0.9 mg/dl (0.2-1.3); Blood Urea Nitrogen 10 mg/dl (9-20); Carbon Dioxide 24 mmol/L (22.0-30.0); Cholesterol 125 mg/dl (140-200); Estimated Glomerular Filt Rate 177 ml/min (>60); GFR (African American) 215 ML/MIN (>60); Globulin 2.4 g/dL (1.3-3.2); Glucose 261 mg/dl (74-100); Total Protein,Serum 6.7 g/dl (6.3-8.2); Triglycerides 428 mg/dl (30-150)
[2023-03-27 14:20] LABS: HDL Cholesterol 21 mg/dl (40-60)
[2023-03-27 14:36] LABS: Direct LDL Cholesterol 41.23 mg/dL (100-129)
[2023-03-27 14:51] LABS: Thyroid Stimulating Hormone 2.33 uIU/mL (0.465-4.68)
== END 2023-03-27 23:59 ==
PROVIDERS: PCP Internal Medicine Adolescent Medicine; Visit Provider Internal Medicine Adolescent Medicine
DX: E11.59 Type 2 diabetes mellitus with other circulatory complications (principal); I25.10 Atherosclerotic heart disease of native coronary artery without angina pectoris; Z79.84 Long term (current) use of oral hypoglycemic drugs; Z79.899 Other long term (current) drug therapy
CPT/HCPCS: 36415; 80053; 80061; 83036; 84443; 85025

== ENCOUNTER 2024-05-29 13:03 | Outpatient (CLI) | payer MEDICARE, SELFPAY ==
[2024-05-29 13:44] LABS: Basophils % 0.3 % (0.1-2.0); Eosinophils # 0.1 K/mm3 (0.0-0.4); Eosinophils % 1.7 % (0.1-12.0); Hematocrit 42.5 % (42.0-52.0); Hemoglobin 14.9 g/dL (14.1-18.0); Lymphocytes # 2.7 K/mm3 (0.7-4.5); Lymphocytes % 44.9 % (10-50); Mean Corpuscular HGB Conc 35.1 g/dL (31.8-35.4); Mean Corpuscular Hemoglobin 27.7 pg (27.0-31.2); Mean Platelet Volume 9.1 fl (7.4-10.4); Monocytes # 0.3 K/mm3 (0.1-1.0); Monocytes % 5.1 % (1.7-9.3); Neutrophils # 2.9 K/mm3 (1.8-7.8); Platelet Count 153 K/mm3 (142-424); Red Blood Count 5.38 M/mm3 (4.60-6.20); Red Cell Distribution Width 12.9 % (11.5-17.5); White Blood Count 5.9 K/mm3 (4.8-10.8)
[2024-05-29 13:52] LABS: Hemoglobin A1C 11.2 % (4.0-6.0)
[2024-05-29 14:02] LABS: Alanine Aminotransferase 54 U/L (12-78); Albumin Level 4.3 g/dl (3.5-5.0); Albumin/Globulin Ratio 1.5 (1.1-1.8); Alkaline Phosphatase 87 U/L (38-126); Anion Gap 14.3 mEq/L (5-15); Aspartate Amino Transferase 38 U/L (17-59); Bilirubin,Total 1.2 mg/dl (0.2-1.3); Blood Urea Nitrogen 14 mg/dl (9-20); Calcium 9.4 mg/dl (8.4-10.2); Carbon Dioxide 27 mmol/L (22.0-30.0); Chloride 97 mmol/L (98-107); Cholesterol 230 mg/dl (140-200); Estimated Glomerular Filt Rate 143 ml/min (>60); GFR (African American) 173 ML/MIN (>60); Globulin 2.9 g/dL (1.3-3.2); Glucose 330 mg/dl (74-100); HDL Cholesterol 23 mg/dl (40-60); Potassium 4.3 mmoL/L (3.5-5.1); Sodium 134 mmol/L (136-145); Total Protein,Serum 7.2 g/dl (6.3-8.2)
[2024-05-29 14:23] LABS: Direct LDL Cholesterol < 30.00 mg/dL (100-129); Triglycerides 1410 mg/dl (30-150)
[2024-05-29 14:28] LABS: Creatinine,Urine Random 52 mg/dL (Not Estab.)
[2024-05-29 14:33] LABS: Prostate Specific Ag Screen 0.3 ng/ml (0.0-4.0)
[2024-05-29 14:34] LABS: Microalbumin/Creatinine Ratio 16.5
[2024-05-29 14:52] LABS: Vitamin B12 791 pg/mL (239-931)
[2024-06-03 14:18] LABS: Testosterone,Free 16.8 pg/mL (6.8-21.5)
[2024-06-06 19:11] LABS: Testosterone, Total, LC/MS 194 ng/dL (.)
== END 2024-05-29 23:59 | disposition home or self-care (01) ==
PROVIDERS: PCP Nurse Practitioner Family; Visit Provider Nurse Practitioner Family
DX: E11.59 Type 2 diabetes mellitus with other circulatory complications (principal); E11.69 Type 2 diabetes mellitus with other specified complication; I25.10 Atherosclerotic heart disease of native coronary artery without angina pectoris; Z79.4 Long term (current) use of insulin; R35.1 Nocturia; M79.2 Neuralgia and neuritis, unspecified; R53.81 Other malaise
CPT/HCPCS: 36415; 80053; 80061; 82043; 82570; 82607; 83036; 84402; 84403; 85025; G0103

== ENCOUNTER 2024-09-07 09:42 | Outpatient (CLI) | payer MEDICARE, SELFPAY ==
--- OUTSIDE RECORDS SUMMARY | 2024-09-07 09:49 | XMS_ITS | Clinical Summary ---
Author Organization [facility] Address [address] [place] [address] Care Team Providers Care Payroll Services Analyst Name Role Phone Dharmesh Felder MD Primary Care Provider [phone] Allergies Active Allergy Reactions Criticality Noted Date Comments Coconut (Cocos Nucifera) Anaphylaxis High 07/13/2012 Lactose Nausea 08/24/2017 Medications triamcinolone (Kenalog) 0.1 % cream APPLY CREAM EXTERNALLY TO AFFECTED AREA TWICE DAILY FOR 14 DAYS 3 Active Rybelsus 14 MG tablet TAKE 1 TABLET BY MOUTH ONCE DAILY, STOP THE 7MG DOSE 2 Active lisinopril 2.5 MG tablet Take 1 tablet (2.5 mg) by mouth 1 (one) time each day. 3 Active Accu-Chek Softclix Lancets lancets USE 1 TO CHECK GLUCOSE TWICE DAILY DIRECTED 3 Active B-D ULTRAFINE III SHORT PEN 31G X 8 MM misc USE 1 ONCE DAILY DIRECTED 3 Active escitalopram (Lexapro) 10 MG tablet Take 1 tablet (10 mg) by mouth 1 (one) time each day. 3 Active dapagliflozin (Farxiga) 10 MG tablet 1 Active cyclobenzaprine (Flexeril) 10 MG tablet Take 1 tablet (10 mg) by mouth 3 (three) times a day if needed. 3 Active carvedilol (Coreg) 3.125 MG tablet Take 1 tablet (3.125 mg) by mouth. 3 Active atorvastatin (Lipitor) 40 MG tablet TAKE 1 TABLET AT BEDTIME. 9 Active glyBURIDE (Diabeta) 5 MG tablet 3 Active Active Problems No known active problems Immunizations Immunization Administration Dates Next Due Influenza, injectable, quadrivalent, preservativ e free 12/31/2016 Family History Medical History Relation Name Comments Lung cancer Father's Brother COPD Mother Depression Mother Hyperlipidemia Mother Relation Name Status Comments Father's Brother Mother Social History Tobacco Use Types Packs/Day Years Used Date Smoking Tobacco: Never Smokeless Tobacco: Never Tobacco Cessation:Counseling Given: Not Answered Alcohol Use Standard Drinks/Week Comments No 0 (1 standard drink = 0.6 oz pur e alcohol) Sex and Gender Information Value Date Recorded Sex Assigned at Not on file Legal Sex Male 7:58 PM EDT Gender Identity Not on file Sexual Orientation Not on file Last Filed Vital Signs Vital Sign Reading Time Taken Comments Blood Pressure 112/80 12/02/2022 2:12 PM EDT Pulse 90 11/09/2022 1:59 PM EDT Temperature 36.8 C (98.2 F) 01/24/2020 1:05 PM EST Respiratory Rate 16 01/24/2020 1:05 PM EST Oxygen Saturation 96% 11/09/2022 1:59 PM EDT Inhaled Oxygen Concentration - - Weight 116 kg (255 lb) 12/02/2022 2:12 PM EDT Height 182.9 cm (6') 12/02/2022 2:12 PM EDT Body Mass Index 34.58 12/02/2022 2:12 PM EDT Plan of Treatment Health Maintenance Due Date Last Done Comments UKY-Depression Screening 1974 UKY-Medicare Annual Wellness (AWV) 1974 [facility]Y-/Child/Adol SDOH Screenings 1974 UKY- SDOH Screenings 1992 UKY-Adult SDOH Screenings 1992 UKY-DTaP,Tdap,and Td Vaccine s (1 - Tdap) 1993 UKY-Hepatitis B Vaccines (1 of 3 - 19+ 3-dose series) 1993 CT Colonography 06/03/2019 Colonoscopy 06/03/2019 FIT-DNA 06/03/2019 FIT 06/03/2019 FOBT 06/03/2019 Sigmoidoscopy 06/03/2019 UKY-Colorectal Cancer Screening 06/03/2019 [id number] Vaccine (1 - 2023-25 season) 2023 UKY-Pneumococcal Vaccine: 50 + Years (1 of 1 - PCV) 2024 UKY-Zoster Vaccines (1 of 2) 2024 UKY-Influenza Vaccine (#1) 2024 12/31/2016 UKY-HIV Screening Completed 07/07/2016 UKY-Hepatitis C Screening Completed 07/07/2016 UKY-Diabetes: Hemoglobin A1C Discontinued , 08/10/2014 UKY-Obesity Intervention Completed 023, 11/09/2022 HPV Vaccines Aged Out No longer eligi ble based on patient's age to complete this topic UKY-HIB Vaccines Aged Out No longer e ligible based on patient's age to complete this topic UKY-Hepatitis A Vaccines Aged Out No longer eligible based on patient's age to complete this topic UKY-IPV Vaccines Aged Out No longer e ligible based on patient's age to complete this topic UKY-Rotavirus Vaccines Aged Out No lo nger eligible based on patient's age to complete this topic Procedures Procedure Name Priority Date/Time Associated Diagnosis Comments HEMOGLOBIN A1C Routine 08/28/2016 11:12 AM EDT ACUTE HEPATITIS PANEL Routine 07/07/2016 8:53 AM EDT HIV 1/2 ANTIBODY/ANTIGEN SCREEN WITH REFLEX TO HIV I/II DIFFERENTIATION Routine 07/07/2016 8:53 AM EDT from Last 3 Months or Most Recently Relevant to Health Maintenance Results * (ABNORMAL) Hemoglobin A1c (08/28/2016 11:12 AM EDT) [facility] Hemoglobin A1c 9.3(H) 4.7 - 6.0 % SUNQUEST Comment: (NOTE) Glycohemoglobin Reference Range, 0 years and up: 4.7 - 6.0% . Hemoglobin A1c values of 5.7 - 6.4% indicate an increased risk for developing diabetes mellitus (prediabetes). Hemoglobin A1c values greater than or equal to 6.5% are diagnostic of diabetes mellitus. . HbA1c assay performed by an ion-exchange chromatography method that is certified traceable to the [facility]. 08/28/2016 11:1 2 AM EDT 08/28/2016 12:40 PM EDT [employer] JUNIOR ORACLE DBA LAB BLOOD ORDERABLES Final Res ult Performing Organization Address City/[facility]/ZIP Co de Phone Number SUNQUEST * HIV 1 & 2 Antibody/Antigen Screen (07/07/2016 8:53 AM EDT) HIV 1 Result NONREACTIVE Screening for HIV 1 and 2 antibodies is NONREACTIVE. No confirmatory testing is required. SUNQUEST 07/07/2016 8:53 AM EDT 07/07/2016 10:24 AM EDT [place] JUNIOR ORACLE DBA LAB BLOOD ORDERABLES Final Res ult Performing Organization Address [facility] de Phone Number SUNQUEST * Acute Hepatitis Panel (07/07/2016 8:53 AM EDT) Pathologist [facility] Hepatitis B Surf Antigen NEGATIVE Reference Value: Negative SUNQUEST Hepatitis C Antibody NEGATIVE Reference Range: Negative SUNQUEST Hepatitis A Antibody IgM NEGATIVE Reference Value: Negative SUNQUEST External Hepatitis B Core IgM (HBCM) NEGATIVE Reference Value: Negative SUNQUEST 07/07/2016 8:53 AM EDT 07/07/2016 10:24 AM EDT [employer] JUNIOR ORACLE DBA LAB BLOOD ORDERABLES Final Res ult SUNQUEST from Last 3 Months or Most Recently Relevant to Health Maintenance Insurance [facility] MEDICARE Care Teams Payroll Services Analyst Relationship Specialty Start Date End Date Dharmesh Felder MD [address] [place] [address] PCP - General 07/12/20
--- OUTSIDE RECORDS SUMMARY | 2024-09-07 09:49 | XMS_ITS | Encounter Summary ---
Author Organization Healthcare Address [address] [place] [address] Care Team Providers Care Courtroom Reporter Name Role Phone Dharmesh Felder MD Primary Care Provider [phone] Encounter Details Date Type Department Care Team (Late st Contact Info) Description 11/07/2022 Orders Only External Location [address] [place] [address] Provider, External Social History Tobacco Use Types Packs/Day Years Used Date Smoking Tobacco: Never Alcohol Use Standard Drinks/Week Comments No 0 (1 standard drink = 0.6 oz pur e alcohol) Sex and Gender Information Value Date Recorded Sex Assigned at Not on file Legal Sex Male 7:58 PM EDT Gender Identity Not on file Sexual Orientation Not on file documented as of this encounter Plan of Treatment Not on file documented as of this encounter Procedures Procedure Name Priority Date/Time Associated Diagnosis Comments MR OUTSIDE IMAGES 11/07/2022 2:18 PM EDT documented in this encounter Results * MR transfer of outside films (11/07/2022 2:18 PM EDT) Anatomical Region Laterality Modality Magnetic Resonan ce 11/07/2022 2:18 PM EDT us External Provider IMG MRI PROCEDURES Final Resul t documented in this encounter Visit Diagnoses Not on filedocumented in this encounter Care Teams Courtroom Reporter Relationship Specialty Start Date End Date Dharmesh Felder MD [address] [place] [address] PCP - General 07/12/20 documented as of this encounter
--- OUTSIDE RECORDS SUMMARY | 2024-09-07 09:49 | XMS_ITS | Encounter Summary ---
Author Organization Healthcare Address [address] [place] [address] Care Team Providers Care Campground Manager Name Role Phone Dharmesh Felder MD Primary Care Provider [phone] Encounter Details Date Type Department Care Team (Late st Contact Info) Description 11/07/2022 Orders Only External Location [address] [place] [address] Provider, External Social History Tobacco Use Types [...] on filedocumented in this encounter Care Teams Campground Manager Relationship Specialty Start Date End Date Dharmesh Felder MD [address] [place] [address] PCP - General 07/12/20 documented as of this encounter
[2024-09-07 10:57] LABS: Alanine Aminotransferase 58 U/L (12-78); Albumin Level 4.5 g/dl (3.5-5.0); Albumin/Globulin Ratio 1.6 (1.1-1.8); Alkaline Phosphatase 96 U/L (38-126); Anion Gap 15.3 mEq/L (5-15); Aspartate Amino Transferase 30 U/L (17-59); Bilirubin,Total 1.0 mg/dl (0.2-1.3); Blood Urea Nitrogen 14 mg/dl (9-20); Calcium 9.1 mg/dl (8.4-10.2); Carbon Dioxide 29 mmol/L (22.0-30.0); Chloride 97 mmol/L (98-107); Cholesterol 238 mg/dl (140-200); Creatinine,Serum 0.60 mg/dl (0.66-1.25); Estimated Glomerular Filt Rate 143 ml/min (>60); GFR (African American) 173 ML/MIN (>60); Globulin 2.8 g/dL (1.3-3.2); Glucose 275 mg/dl (74-100); HDL Cholesterol 19 mg/dl (40-60); Potassium 4.3 mmoL/L (3.5-5.1); Sodium 137 mmol/L (136-145); Total Protein,Serum 7.3 g/dl (6.3-8.2)
[2024-09-07 11:36] LABS: Triglycerides 1394 mg/dl (30-150)
[2024-09-07 11:54] LABS: Hemoglobin A1C 11.4 % (4.0-6.0)
== END 2024-09-07 23:59 | disposition home or self-care (01) ==
LOC: LAB 09:43
PROVIDERS: PCP Nurse Practitioner Family; Visit Provider Nurse Practitioner Family
DX: E11.65 Type 2 diabetes mellitus with hyperglycemia (principal); E11.69 Type 2 diabetes mellitus with other specified complication
CPT/HCPCS: 36415; 80053; 80061; 83036

== ENCOUNTER 2024-11-03 12:16 | Outpatient (CLI) | payer MEDICARE, SELFPAY ==
--- OUTSIDE RECORDS SUMMARY | 2024-11-03 12:20 | XMS_ITS | Clinical Summary ---
Author Organization [facility] Address [address] [place] [address] Care Team Providers Care Bleach Mixer Name Role Phone Dharmesh Felder MD Primary Care Provider [phone] Allergies No known active allergies Medications FLUoxetine (PROzac) 40 MG capsule Take by mouth. 04/25/2014 Active gabapentin (NEURONTIN) 300 MG capsule Take 3 capsules by mouth 3 (three) times a day. 04/25/2014 Active haloperidol (HALDOL) 1 MG tablet Take by mouth. 04/25/2014 Active metFORMIN (GLUCOPHAGE) 500 MG tablet Take by mouth. 04/25/2014 Active omeprazole (PriLOSEC) 20 MG capsule Take by mouth. 04/25/2014 Active traZODone (DESYREL) 150 MG tablet Take by mouth. 04/25/2014 Active ascorbic acid (VITAMIN C) 1000 MG tablet Take by mouth. 04/25/2014 Active vitamin E 400 UNIT capsule Take by mouth. 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 Overview (01/31/2016): Assessed By: Roel Stein (Neurology); Last Assessed: 22 Aug 2014 Obstructive sleep apnea 01/31/2016 Overview (01/31/2016): Assessed By: Roel Stein (Neurology); Last Assessed: 15 Mar 2015 Sleep apnea, central 01/31/2016 Periodic limb movement disorder (PLMD) 6 Family History Medical History Relation Name Comments Alcohol abuse Father Stroke Father Depression Mother Diabetes Mother Hypertension Mother Cancer Other FAMILY Relation Name Status Comments Father Mother Other FAMILY Social History Tobacco Use Types Packs/Day Years Used Date Smoking Tobacco: Never Alcohol Use Standard Drinks/Week Comments No 0 (1 standard drink = 0.6 oz pur e alcohol) Abuse Screen Answer Date Recorded Unsafe at Home or Work/School Not on file Feels Threatened by Someone? Not on file 11/2022 Does Anyone Keep You from Co ntacting Others or Doint Things Outside the Home? Not on file 12/08/2022 Physical Sign of Abuse Present Not on file 1 Housing Stability Answer Date Recorded Current Living Arrangements Not on file 11/29 Potentially Unsafe Housing Conditions Not on anay e 12/08/2022 Family and Community Support Answer Emmanuel e Recorded Help with Day-to-Day Activities Not on file 12/08/2022 Lonely or Isolated Not on file 12/08/2022 Employment Answer Date Recorded Do you want help finding or keeping work or a vik b? Not on file 12/08/2022 Disabilities Answer Date Recorded Concentrating, Remembering, or Making Decisions Difficulty Not on file 12/08/2022 Doing Errands Independently Difficulty Not on fi le 12/08/2022 Education Answer Date Recorded Help with school or training? Not on file Preferred Language Not on file 12/08/2022 Sex and Gender Information Value Date Recorded Sex Assigned at Not on file Legal Sex Male 1:50 PM EDT Gender Identity Not on file Sexual Orientation Not on file Last Filed Vital Signs Vital Sign Reading Time Taken Comments Blood Pressure 116/70 04/03/2016 1:52 PM EST Pulse - - Temperature - - Respiratory Rate - - Oxygen Saturation - - Inhaled Oxygen Concentration - - Weight 127 kg (279 lb 8 oz) 04/03/2016 1:[address] Height 185.4 cm (6' 1 ) 04/03/2016 1:52 PM EST Body Mass Index 36.88 04/03/2016 1:52 PM EST Plan of Treatment Health Maintenance Due Date Last Done Comments ANNUAL PHYSICAL 1975 HEPATITIS C SCREENING 1974 TDAP/TD VACCINES (1 - Tdap) 1993 COLOGUARD 06/03/2019 COLON CANCER SCREENING 5 YEAR SIGMOIDOSCOPY 06/03/2019 COLONOSCOPY 06/03/2019 COLORECTAL CANCER SCREENING 06/03/2019 CT COLONOGRAPHY 06/03/2019 FECAL OCCULT BLOOD TEST 06/03/2019 FIT Testing (1 year) 06/03/2019 Pneumococcal Vaccine 50+ (1 of 1 - PCV) 2024 ZOSTER VACCINE (1 of 2) 2024 COVID-19 Vaccine (1 - 2023- season) 2024 INFLUENZA VACCINE 11/29/2024 [facility] Care Teams Bleach Mixer Relationship Specialty Start Date End Date Dharmesh Felder MD [address] [facility] [address] [place] [address] PCP - General Adolescent Medicine 04/03/16
--- OUTSIDE RECORDS SUMMARY | 2024-11-03 12:20 | XMS_ITS | Encounter Summary ---
Author Organization Healthcare Address [address] [place] [address] Care Team Providers Care Automobile Service Station Mechanic Name Role Phone Dharmesh Felder MD Primary Care Provider [phone] Encounter Details Date Type Department Care Team (Late st Contact Info) Description 11/07/2022 Orders Only External Location [address] [place] [address] Provider, External Social History Tobacco Use Types [...] on filedocumented in this encounter Care Teams Automobile Service Station Mechanic Relationship Specialty Start Date End Date Dharmesh Felder MD [address] [place] [address] PCP - General 07/12/20 documented as of this encounter
--- OUTSIDE RECORDS SUMMARY | 2024-11-03 12:20 | XMS_ITS | Clinical Summary ---
Author Organization [facility] Address [address] [place] [address] Care Team Providers Care Professional Development Instructor Name Role Phone Dharmesh Felder MD Primary Care Provider [phone] Allergies Active Allergy Reactions Criticality Noted Date [...] 06/03/2019 Sigmoidoscopy 06/03/2019 UKY-Colorectal Cancer Screening 06/03/2019 [id number] Vaccine (1 - 2023-25 season) 2023 UKY-Pneumococcal [...] (ABNORMAL) Hemoglobin A1c (08/28/2016 11:12 AM EDT) [facility] Hemoglobin A1c 9.3(H) 4.7 - 6.0 % [...] method that is certified traceable to the [facility]. 08/28/2016 11:1 2 AM EDT 08/28/2016 12:40 PM EDT [employer] GEOSPATIAL EXTRACTOR ANALYSIS LAB BLOOD ORDERABLES Final Res ult Performing Organization Address City/[facility]/ZIP Co de Phone Number SUNQUEST * HIV 1 & 2 Antibody/Antigen Screen (07/07/2016 8:53 AM EDT) HIV 1 Result NONREACTIVE Screening for HIV 1 and 2 antibodies is NONREACTIVE. No confirmatory testing is required. SUNQUEST 07/07/2016 8:53 AM EDT 07/07/2016 10:24 AM EDT [place] GEOSPATIAL EXTRACTOR ANALYSIS LAB BLOOD ORDERABLES Final Res ult Performing Organization Address [facility] de Phone Number SUNQUEST * Acute Hepatitis Panel (07/07/2016 8:53 AM EDT) Pathologist [facility] Hepatitis B Surf Antigen NEGATIVE Reference Value: Negative SUNQUEST Hepatitis C Antibody NEGATIVE Reference Range: Negative SUNQUEST Hepatitis A Antibody IgM NEGATIVE Reference Value: Negative SUNQUEST External Hepatitis B Core IgM (HBCM) NEGATIVE Reference Value: Negative SUNQUEST 07/07/2016 8:53 AM EDT 07/07/2016 10:24 AM EDT [facility] GEOSPATIAL EXTRACTOR ANALYSIS LAB BLOOD ORDERABLES Final Res ult SUNQUEST from Last 3 Months or Most Recently Relevant to Health Maintenance Insurance [facility] MEDIC[facility] Care Teams Professional Development Instructor Relationship Specialty Start Date End Date Dharmesh Felder MD [address] [place] [address] PCP - General 07/12/20
--- OUTSIDE RECORDS SUMMARY | 2024-11-03 12:20 | XMS_ITS | Encounter Summary ---
Author Organization Healthcare Address [address] [place] [address] Care Team Providers Care Facilities Painter Name Role Phone Dharmesh Felder MD Primary Care Provider [phone] Encounter Details Date Type Department Care Team (Late st Contact Info) Description 11/07/2022 Orders Only External Location [address] [place] [address] Provider, External Social History Tobacco Use Types [...] on filedocumented in this encounter Care Teams Facilities Painter Relationship Specialty Start Date End Date Dharmesh Felder MD [address] [place] [address] PCP - General 07/12/20 documented as of this encounter
[2024-11-03 13:30] LABS: Creatine Kinase 203 U/L (55-170)
== END 2024-11-03 23:59 | disposition home or self-care (01) ==
LOC: LAB 12:17
PROVIDERS: Student in an Organized Health Care Education/Training Program; PCP Nurse Practitioner Family; Visit Provider Specialist
DX: M62.81 Muscle weakness (generalized) (principal)
CPT/HCPCS: 36415; 82085; 82550; 84402; 84403

== ENCOUNTER 2024-11-15 11:18 | Outpatient (CLI) | payer MEDICARE, SELFPAY ==
--- OUTSIDE RECORDS SUMMARY | 2024-11-15 11:20 | XMS_ITS | Encounter Summary ---
Author Organization Healthcare Address [address] [place] [address] Care Team Providers Care Hearing Dog Trainer Name Role Phone Dharmesh Felder MD Primary Care Provider [phone] Encounter Details Date Type Department Care Team (Late st Contact Info) Description 11/07/2022 Orders Only External Location [address] [place] [address] Provider, External Social History Tobacco Use Types [...] on filedocumented in this encounter Care Teams Hearing Dog Trainer Relationship Specialty Start Date End Date Dharmesh Felder MD [address] [place] [address] PCP - General 07/12/20 documented as of this encounter
--- OUTSIDE RECORDS SUMMARY | 2024-11-15 11:20 | XMS_ITS | Encounter Summary ---
Author Organization Healthcare Address [address] [place] [address] Care Team Providers Care Journalism Teacher Name Role Phone Dharmesh Felder MD Primary Care Provider [phone] Encounter Details Date Type Department Care Team (Late st Contact Info) Description 11/07/2022 Orders Only External Location [address] [place] [address] Provider, External Social History Tobacco Use Types [...] on filedocumented in this encounter Care Teams Journalism Teacher Relationship Specialty Start Date End Date Dharmesh Felder MD [address] [place] [address] PCP - General 07/12/20 documented as of this encounter
--- OUTSIDE RECORDS SUMMARY | 2024-11-15 11:20 | XMS_ITS | Clinical Summary ---
Author Organization [facility] Address [address] [place] [address] Care Team Providers Care Receiver Dispatcher Name Role Phone Dharmesh Felder MD Primary Care Provider [phone] Allergies Active Allergy Reactions Criticality Noted Date [...] Screening 1974 [facility]Y-Medicare Annual Wellness (AWV) 1974 [facility]Y-Infant/Child/Adol SDOH Screenings 1974 UKY- SDOH Screenings 1992 UKY-Adult SDOH Screenings 1992 UKY-DTaP,Tdap,and Td Vaccine s (1 - Tdap) 1993 UKY-Hepatitis B Vaccines (1 of 3 - 19+ 3-dose series) 1993 CT Colonography 06/03/2019 Colonoscopy 06/03/2019 FIT-DNA 06/03/2019 FIT 06/03/2019 FOBT 06/03/2019 Sigmoidoscopy 06/03/2019 UKY-Colorectal Cancer Screening 06/03/2019 UKY-Pneumococcal Vaccine: 50 + Years (1 of 1 - PCV) 2024 UKY-Zoster Vaccines (1 of 2) 2024 [id number] Vaccine (1 - 2023- season) 2024 UKY-Influenza Vaccine (#1) 2024 12/31/2016 UKY-HIV [...] (ABNORMAL) Hemoglobin A1c (08/28/2016 11:12 AM EDT) [facility] Hemoglobin A1c 9.3(H) 4.7 - 6.0 % [...] method that is certified traceable to the [facility]. 08/28/2016 11:1 2 AM EDT 08/28/2016 12:40 PM EDT [employer] PROGRAMMER LAB BLOOD ORDERABLES Final Res ult Performing Organization Address City/[facility]/ZIP Co de Phone Number SUNQUEST * HIV 1 & 2 Antibody/Antigen Screen (07/07/2016 8:53 AM EDT) HIV 1 Result NONREACTIVE Screening for HIV 1 and 2 antibodies is NONREACTIVE. No confirmatory testing is required. SUNQUEST 07/07/2016 8:53 AM EDT 07/07/2016 10:24 AM EDT [employer] J2EE PROGRAMMER LAB BLOOD ORDERABLES Final Res ult Performing Organization Address [facility] de Phone Number SUNQUEST * Acute Hepatitis Panel (07/07/2016 8:53 AM EDT) Pathologist [facility] Hepatitis B Surf Antigen NEGATIVE Reference Value: Negative SUNQUEST Hepatitis C Antibody NEGATIVE Reference Range: Negative SUNQUEST Hepatitis A Antibody IgM NEGATIVE Reference Value: Negative SUNQUEST External Hepatitis B Core IgM (HBCM) NEGATIVE Reference Value: Negative SUNQUEST 07/07/2016 8:53 AM EDT 07/07/2016 10:24 AM EDT [employer] PROGRAMMER LAB BLOOD ORDERABLES Final Res ult SUNQUEST from Last 3 Months or Most Recently Relevant to Health Maintenance Insurance [facility] MEDICARE Care Teams Receiver Dispatcher Relationship Specialty Start Date End Date Dharmesh Felder MD [address] [place] [address] PCP - General 07/12/20
--- OUTSIDE RECORDS SUMMARY | 2024-11-15 11:20 | XMS_ITS | Clinical Summary ---
Author Organization [facility] Address [address] [place] [address] Care Team Providers Care Hydraulic Billet Maker Name Role Phone Dharmesh Felder MD Primary Care Provider [phone] Allergies No known active allergies Medications FLUoxetine [...] 2023- season) 2024 INFLUENZA VACCINE 11/29/2024 [facility] Care Teams Hydraulic Billet Maker Relationship Specialty Start Date End Date Dharmesh Felder MD [address] [facility] [address] [place] [address] PCP - General Adolescent Medicine 04/03/16
[2024-11-15 11:40] LABS: Hematocrit 41.6 % (42.0-52.0); Hemoglobin 14.5 g/dL (14.1-18.0); Mean Corpuscular HGB Conc 34.9 g/dL (31.8-35.4); Mean Corpuscular Hemoglobin 28.2 pg (27.0-31.2); Mean Corpuscular Volume 80.8 fl (80-94); Nucleated Red Blood Cells % 0 %; Platelet Count 181 K/mm3 (142-424); Red Blood Count 5.15 M/mm3 (4.60-6.20); Red Cell Distribution Width-SD 38.2 fL; White Blood Count 5.2 K/mm3 (4.8-10.8)
[2024-11-15 12:23] LABS: Iron 73 ug/dL (49-181)
[2024-11-15 12:33] LABS: Total Iron Binding Capacity 337 ug/dL (261-462)
[2024-11-15 12:35] LABS: Free T4 (Free Thyroxine) 0.91 ng/dl (0.78-2.19)
[2024-11-15 12:55] LABS: Thyroid Stimulating Hormone 2.76 uIU/mL (0.465-4.68)
[2024-11-15 12:59] LABS: Ferritin 77.4 ng/ml (17.9-464)
[2024-11-15 13:05] LABS: Prostate Specific Ag, Diagnost 0.364 ng/ml (0.0-4.0)
[2024-11-16 10:14] LABS: FSH 4.4 mIU/mL (1.5-12.4); LH 4.8 mIU/mL (1.7-8.6)
== END 2024-11-15 23:59 | disposition home or self-care (01) ==
LOC: LAB 11:19
PROVIDERS: PCP Nurse Practitioner Family; Visit Provider Student in an Organized Health Care Education/Training Program
DX: R79.89 Other specified abnormal findings of blood chemistry (principal)
CPT/HCPCS: 36415; 82728; 83001; 83002; 83540; 83550; 84146; 84153; 84270; 84402; 84403; 84439; 84443; 85027

== ENCOUNTER 2024-12-04 16:52 | Outpatient (CLI) | payer MEDICARE, SELFPAY ==
--- OUTSIDE RECORDS SUMMARY | 2024-12-04 16:54 | XMS_ITS | Clinical Summary ---
Author Organization [facility] Address [address] [place] [address] Care Team Providers Care Hematology Nurse Name Role Phone Dharmesh Felder MD Primary Care Provider [phone] Allergies Active Allergy Reactions Criticality Noted Date [...] 2024 UKY-Zoster Vaccines (1 of 2) 2024 [id number] Vaccine (1 - 2023- season) 2024 UKY-Influenza [...] (ABNORMAL) Hemoglobin A1c (08/28/2016 11:12 AM EDT) [facility] Hemoglobin A1c 9.3(H) 4.7 - 6.0 [...] method that is certified traceable to the [facility] 08/28/2016 11:1 2 AM EDT 08/28/2016 12:40 PM EDT [employer] HEALTH CARE COORDINATOR LAB BLOOD ORDERABLES Final Res ult Performing Organization Address City/[facility]/ZIP Co de Phone Number SUNQUEST * HIV 1 & 2 Antibody/Antigen Screen (07/07/2016 8:53 AM EDT) HIV 1 Result NONREACTIVE Screening for HIV 1 and 2 antibodies is NONREACTIVE. No confirmatory testing is required. SUNQUEST 07/07/2016 8:53 AM EDT 07/07/2016 10:24 AM EDT [employer] HEALTH CARE COORDINATOR LAB BLOOD ORDERABLES Final Res ult Performing Organization Address [facility] de Phone Number SUNQUEST * Acute Hepatitis Panel (07/07/2016 8:53 AM EDT) Pathologist [facility] Hepatitis B Surf Antigen NEGATIVE Reference Value: Negative SUNQUEST Hepatitis C Antibody NEGATIVE Reference Range: Negative SUNQUEST Hepatitis A Antibody IgM NEGATIVE Reference Value: Negative SUNQUEST External Hepatitis B Core IgM (HBCM) NEGATIVE Reference Value: Negative SUNQUEST 07/07/2016 8:53 AM EDT 07/07/2016 10:24 AM EDT [facility] HEALTH CARE COORDINATOR LAB BLOOD ORDERABLES Final Res ult SUNQUEST from Last 3 Months or Most Recently Relevant to Health Maintenance Insurance [facility] MEDICARE Care Teams Hematology Nurse Relationship Specialty Start Date End Date Dharmesh Felder MD [address] [place] [address] PCP - General 07/12/20
--- OUTSIDE RECORDS SUMMARY | 2024-12-04 16:54 | XMS_ITS | Encounter Summary ---
Author Organization Healthcare Address [address] [place] [address] Care Team Providers Care Pinion Polisher Name Role Phone Dharmesh Felder MD Primary Care Provider [phone] Encounter Details Date Type Department Care Team (Late st Contact Info) Description 11/07/2022 Orders Only External Location [address] [place] [address] Provider, External Social History Tobacco Use Types [...] on filedocumented in this encounter Care Teams Pinion Polisher Relationship Specialty Start Date End Date Dharmesh Felder MD [address] [place] [address] PCP - General 07/12/20 documented as of this encounter
--- OUTSIDE RECORDS SUMMARY | 2024-12-04 16:54 | XMS_ITS | Clinical Summary ---
Author Organization [facility] Address [address] [place] [address] Care Team Providers Care Wastewater Analyst Lab Analyst Name Role Phone Dharmesh Felder MD Primary Care Provider [phone] Allergies No known active allergies Medications FLUoxetine [...] 2024 ZOSTER VACCINE (1 of 2) 2024 INFLUENZA VACCINE 09/29/2024 [facility] Care Teams Wastewater Analyst Lab Analyst Relationship Specialty Start Date End Date Dharmesh Felder MD [address] [facility] [address] [place] [address] PCP - General Adolescent Medicine 04/03/16
--- OUTSIDE RECORDS SUMMARY | 2024-12-04 16:54 | XMS_ITS | Encounter Summary ---
Author Organization Healthcare Address [address] [place] [address] Care Team Providers Care Produce Department Manager Name Role Phone Dharmesh Felder MD Primary Care Provider [phone] Encounter Details Date Type Department Care Team (Late st Contact Info) Description 11/07/2022 Orders Only External Location [address] [place] [address] Provider, External Social History Tobacco Use Types [...] on filedocumented in this encounter Care Teams Produce Department Manager Relationship Specialty Start Date End Date Dharmesh Felder MD [address] [place] [address] PCP - General 07/12/20 documented as of this encounter
[2024-12-04 20:36] LABS: Hemoglobin A1C 10.0 % (4.0-6.0)
== END 2024-12-04 23:59 | disposition home or self-care (01) ==
LOC: LAB 16:53
PROVIDERS: PCP Nurse Practitioner Family; Visit Provider Student in an Organized Health Care Education/Training Program
DX: E11.9 Type 2 diabetes mellitus without complications (principal)
CPT/HCPCS: 36415; 83036